=== PATIENT | female | born 1965 | race Caucasian/White ===

== ENCOUNTER 2020-05-08 08:59 | Outpatient (CLI) | payer BC, SELFPAY ==
--- NOTE | ~2020-05-08 | MM_ITS ---
EXAMINATION: MM screening sheyla BI w chikis HISTORY: Screening mammogram TECHNIQUE: Craniocaudal and mediolateral oblique 3-D tomosynthesis images were obtained and synthetic 2-D images were generated. CAD analysis was submitted and interpreted. COMPARISON: 08/31/2014, 10/27/2012 bilateral digital screening mammogram examinations BREAST PARENCHYMAL COMPOSITION: There are scattered areas of fibroglandular density. FINDINGS: There is no evidence of suspicious mass, calcification, or architectural distortion to sugg est malignancy in either breast. There has been no suspicious interval change. IMPRESSION: 1. No mammographic evidence of malignancy. 2. Recommend routine screening mammography in one year. BI-RADS Category 1: Negative Reviewed, dictated and finalized at location A.
== END 2020-05-08 09:00 | disposition home or self-care (01) ==
LOC: ANHIMG 09:01
PROVIDERS: PCP Family Medicine; Visit Provider Nurse Practitioner Family
DX: Z12.31 Encounter for screening mammogram for malignant neoplasm of breast (principal)
CPT/HCPCS: 77063; 77067

== ENCOUNTER 2022-12-14 12:42 | Emergency (ER) | payer OTHER, BC, SELFPAY ==
--- NOTE | ~2022-12-14 | XR_ITS ---
EXAMINATION: XR knee RT 3V DATE: 12/14/2022 13:42 INDICATION: Right knee pain. Fall. TECHNIQUE: 3 views of right knee were obtained. COMPARISON: None. FINDINGS: Bone alignment is normal. No fracture. There is mild tricompartmental osteoarthritis. No kn ee joint effusion. IMPRESSION: 1. Mild right knee osteoarthritis. Reviewed, dictated and finalized at location A. IAL PROCEDURES NURSE
--- NOTE | ~2022-12-14 | XR_ITS ---
EXAMINATION: XR ankle RT min 3V DATE: 12/14/2022 13:42 INDICATION: Right ankle pain. Fall. TECHNIQUE: 4 views of right foot were obtained. COMPARISON: None. FINDINGS: Bone alignment is normal. No fracture. Joint spaces are normal. There is an enthesophyte at plantar aspect of calcaneal tuberosity. IMPRESSION: 1. No fracture. Reviewed, dictated and finalized at location A. PRESS FEEDER IMPRESSION: 1. No fracture.
[2022-12-14 13:01] VITALS: BP 156/82; PULSE 70; RESP 16; TEMP 36.5; O2SAT 98
--- NOTE | 2022-12-14 14:09 | ED.LOWEXIN ---
HPI - Extremity Injury (Lower) General Chief Complaint: Extremity Injury, Lower Stated Complaint: fall/ankle and knee pain Time Seen by Provider: 12/14/22 13:16 Source: patient Mode of arrival: ambulatory Limitations: no limitations History of Present Illness HPI Narrative: This is a 57-year-old female that presents to the emergency department for right ankle pain after an injury today. 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 Also reports some pain in the knee. She did not fall. Has been able to ambulate since, but with pain. Denies decreased range of motion or numbness. Related Data Allergies Allergy/AdvReac Type Severity Reaction Status Date / Time peanut Allergy Severe SWELL Verified 03/12/22 11:54 THROAT soybean Allergy Severe SWELL Verified 03/12/22 11:54 THROAT clarithromycin Allergy Mild HIVES Verified 03/12/22 11:54 codeine Allergy Mild Verified 03/12/22 11:54 etodolac Allergy Mild DIARRHEA Verified 03/12/22 11:54 SWELLING loratadine Allergy Mild Verified 03/12/22 11:54 mometasone furoate Allergy Mild HIVES Verified 03/12/22 11:54 naproxen Allergy Mild Verified 03/12/22 11:54 Penicillins Allergy Mild HIVES Verified 03/12/22 11:54 promethazine Allergy Mild Verified 03/12/22 11:54 Quinolones Allergy Mild Verified 03/12/22 11:54 rofecoxib Allergy Mild Verified 03/12/22 11:54 Sulfa (Sulfonamide Allergy Mild Verified 03/12/22 11:54 Antibiotics) azithromycin Allergy Unknown Verified 03/12/22 11:54 BETALACTAMASEIN Allergy Mild Uncoded 03/12/22 11:54 STRING BEANS Allergy Mild Uncoded 03/12/22 11:54 Review of Systems Review of Systems: CONSTITUTIONAL: Denies fever MUSCULOSKELETAL: Reports joint pain, and myalgia. NEUROLOGIC: Denies numbness, or weakness. All systems reviewed & are unremarkable except as noted in HPI and below PMFSH Past Medical History Medical History (Updated 12/14/22 @ 14:13 by Kyra Leos PA-C) History of seasonal allergies Family History Family History (System 03/12/22 @ 11:54 by Holly Cho) Father Hypertension Family history of congestive heart failure Mother Family history of malignant neoplasm Social History Social History (System 03/12/22 @ 11:54 by Holly Cho) Smoking status: Former smoker Smoking end date: 10/11/15 Alcohol intake: current Exam Narrative: GENERAL: Well-appearing, well-nourished, and in no acute distress. HEAD: Normocephalic, atraumatic. EYES: EOMI. EXTREMITIES: Normal range of motion. No edema or obvious deformity. Normal DP pulse. Normal sensation SKIN: Warm, dry, no rash. NEURO: No focal deficits. Alert and oriented x3. PSYCH: Normal mood and affect Course Course Emergency Course: Patient updated on work-up and agrees with plan of care Vital Signs Vital signs: Vital Signs Temperature 97.7 F 12/14/22 13:01 Pulse Rate 70 12/14/22 13:01 Respiratory Rate 16 12/14/22 13:01 Blood Pressure 156/82 H 12/14/22 13:01 Pulse Oximetry 98 12/14/22 13:01 Oxygen Delivery Room Air 12/14/22 13:01 Temperature 97.7 F 12/14/22 13:01 Pulse Rate 70 12/14/22 13:01 Respiratory Rate 16 12/14/22 13:01 Blood Pressure 156/82 H 12/14/22 13:01 Pulse Oximetry 98 12/14/22 13:01 Oxygen Delivery Room Air 12/14/22 13:01 MDM - Extremity Injury (Lower) MDM Narrative Medical decision making narrative: Patient presents to the emergency department for right ankle and knee pain after a twisting injury today. No fall. She was ambulatory to the ED. She is neurovascularly intact. Right ankle and knee x-rays are without acute osseous abnormalities. Patient placed in an Milo wrap and given crutches. Instructed to have follow-up with her primary doctor. She was given warnings to return to the ER Differential Diagnosis Differential diagnosis: Likely ankle sprain and strain, acute internal derangement of knee and ankle fracture Imaging Data Radiologist's impression
== END 2022-12-14 14:34 | disposition home or self-care (01) ==
PROVIDERS: Emergency Provider Physician Assistant; PCP Family Medicine
DX: S93.401A Sprain of unspecified ligament of right ankle, initial encounter (principal); X50.0XXA Overexertion from strenuous movement or load, initial encounter
CPT/HCPCS: 73562; 73610; 99284

== ENCOUNTER 2024-02-21 11:14 | Emergency (ER) | payer BC, SELFPAY ==
[2024-02-21 11:20] VITALS: BP 157/81; PULSE 65; RESP 20; TEMP 36.6; O2SAT 100
--- NOTE | 2024-02-21 11:35 | ED.GENADULT ---
HPI - General Adult General Chief complaint: Unspecified Stated complaint: feels numb and tingly Time Seen by Provider: 02/21/24 11:30 Source: patient, RN notes reviewed and old records reviewed Mode of arrival: ambulatory Limitations: no limitations History of Present Illness HPI narrative: 58 year old female who presents to [facility] care with complaints of being at [facility] and suddenly felt numb and tingly from head to her toes lasting about 1 minute. Patient denies that sensation at this time, is able to move all extremities on own power, has no drift to extremities, denies any chest pain or any shortness of breath. Patient reports that her primary has been watching her blood pressure and had her do blood pressure recording at home for 2 weeks which was not abnormally elevated and is planning to have her do it again in May and wanted her to loose weight. Patient denies any recent cold symptoms, no ear pain or any sinus congestion. Patient reports history of chronic urticaria condition and takes Pepcid and ant-antihistamines daily., patient has history of several allergies . Orthostatic blood pressures laying 165/83 pulse 62, sitting 170/85 pulse 64, and standing 156/78 pulse 69. MD complaint: patient had episode of feeling tingly and numb from head to toes Onset (ago): hour(s) (today at 1037) Treatments prior to arrival: none Related Data Home Medications Medication Instructions Recorded Confirmed Pepcid 02/21/24 Allergies Allergy/AdvReac Type Severity Reaction Status Date / Time peanut Allergy Severe SWELL Verified 03/12/22 11:54 THROAT soybean Allergy Severe SWELL Verified 03/12/22 11:54 THROAT clarithromycin Allergy Mild HIVES Verified 03/12/22 11:54 codeine Allergy Mild Verified 03/12/22 11:54 etodolac Allergy Mild DIARRHEA Verified 03/12/22 11:54 SWELLING loratadine Allergy Mild Verified 03/12/22 11:54 mometasone furoate Allergy Mild HIVES Verified 03/12/22 11:54 naproxen Allergy Mild Verified 03/12/22 11:54 Penicillins Allergy Mild HIVES Verified 03/12/22 11:54 promethazine Allergy Mild Verified 03/12/22 11:54 Quinolones Allergy Mild Verified 03/12/22 11:54 rofecoxib Allergy Mild Verified 03/12/22 11:54 Sulfa (Sulfonamide Allergy Mild Verified 03/12/22 11:54 Antibiotics) azithromycin Allergy Unknown Verified 03/12/22 11:54 BETALACTAMASEIN Allergy Mild Uncoded 03/12/22 11:54 STRING BEANS Allergy Mild Uncoded 03/12/22 11:54 Review of Systems Review of Systems: CONSTITUTIONAL: Denies fever, chills, or sweats. EYES: Denies visual changes, redness, or discharge. ENT: Denies rhinorrhea, congestion, sore throat, or otalgia. CARDIOVASCULAR: Denies chest pain, palpitations, or edema. RESPIRATORY: Denies cough or dyspnea. GASTROINTESTINAL: Denies abdominal pain, nausea, vomiting, or diarrhea. GENITOURINARY: Denies dysuria or hematuria. SKIN: Denies rash or itching. MUSCULOSKELETAL: Denies back pain, joint pain, or myalgia. NEUROLOGIC: Denies headache, numbness, or weakness at this time reports episode of numbness and tingling from head to toes lasting approximately 1 minute this morning PSYCHIATRIC: Denies anxiety or depression. All systems reviewed & are unremarkable except as noted in HPI and below PMFSH Past Medical History Medical History (Updated 02/22/24 @ 16:19 by Suzie Linn NP) Arthritis Chronic urticaria History of seasonal allergies Surgical History Surgical History (Updated 02/22/24 @ 16:22 by Suzie Linn NP) H/O: hysterectomy History of right hip replacement History of sinus surgery x4 History of tonsillectomy Hx of cholecystectomy Family History Family History (Updated 02/22/24 @ 16:20 by Suzie Linn NP) Father Hypertension Family history of congestive heart failure Mother Family history of malignant neoplasm Sibling Kidney disorder Social History Social History (Updated 02/22/24 @ 16:20 by Suzie Linn NP) Smoking stat
[2024-02-21 11:59] VITALS: BP 165/83; PULSE 62
[2024-02-21 12:00] VITALS: BP 156/78; BP 170/85; PULSE 64; PULSE 69
== END 2024-02-21 12:07 | disposition short-term general hospital (02) ==
LOC: EXPBETH 11:17
PROVIDERS: Emergency Provider Registered Nurse
DX: R20.0 Anesthesia of skin (principal); R20.2 Paresthesia of skin; Z87.891 Personal history of nicotine dependence; M19.90 Unspecified osteoarthritis, unspecified site; Z96.641 Presence of right artificial hip joint
CPT/HCPCS: 99212; G0463